=== PATIENT | female | born 1990 | race Caucasian/White ===

== ENCOUNTER 2017-09-13 05:08 | Emergency (ER) | payer SELFPAY ==
[2017-09-13] MEDS ORDERED: NA CHLORIDE 0.9% 1,000 ML ONE (05:54)
[2017-09-13] MEDS ORDERED: ONDANSETRON 4 MG/2 ML VIAL ONE (06:04)
[2017-09-13] MEDS ORDERED: KETOROLAC 30 MG/ML INJ ONE (06:04)
[2017-09-13 06:24] LABS: Absolute Monocytes 0.6 K/uL (0.1-1.3); Absolute Neutrophil 3.8 K/uL (1.8-8.0); Basophils % 0.7 % (0-1.3); Eosinophils % 4.8 % (0-4.4); Hematocrit 44.7 % (36.0-45.0); MCH 31.1 pg (27.0-35.0); MCV 92.1 fL (80-100); MPV 8.8 fL (7.6-11.3); RBC Red Blood Cell Count 4.86 M/uL (3.86-4.86)
[2017-09-13 06:38] LABS: Urine Blood 3+ (NEG); Urine Glucose NEGATIVE (NEG); Urine Protein 1+ (NEG); Urine Specific Gravity >1.030 (1.005-1.030); Urine pH 5.5 (5.0-7.0)
[2017-09-13 06:39] LABS: ALT/SGPT 30 U/L (12-78); AST/SGOT 23 U/L (15-37); Albumin 3.7 g/dL (3.4-5.0); Alkaline Phosphatase 67 U/L (45-117); Amylase Level 65 U/L (25-115); BUN Blood Urea Nitrogen 20 mg/dL (7-18); Bicarbonate 29 mmol/L (21-32); Bilirubin Direct < 0.1 mg/dL (0-0.2); Bilirubin Total 0.4 mg/dL (0.2-1.0); Glucose Level 108 mg/dL (74-106); Lipase 233 U/L (73-393); Potassium 3.8 mmol/L (3.5-5.1); Protein, Total 7.4 g/dL (6.4-8.2); Sodium Level 140 mmol/L (136-145)
[2017-09-13 06:41] LABS: Urine Bacteria >50 /HPF (<20)
[2017-09-13 06:42] LABS: Urine Culture Reflex Order REFLEXED; Urine RBC >50 /HPF (NONE SEEN)
[2017-09-13] MEDS ORDERED: CEFTRIAXONE/SWI 1gm 1 GM/10 ML SYR ONE (07:30)
--- NOTE | 2017-09-13 07:31 | EDPHYS ---
Physician Documentation [facility] Name: Santa Mcadams Age: 27 yrs Sex: Female : 1990 Arrival Date: 09/13/2017 Time: 05:09 Bed 15 Private MD: ED Physician Velasquez Perrin HPI: 09/13 06:25 This 27 yrs old Female presents to ER via Ambulatory with complaints of tw4 Possible Kidney Stone. 06:25 The patient complains of pain in the left mid back. The pain radiates to the left lower tw4 quadrant. Onset: The symptoms/episode began/occurred acutely. Modifying factors: The symptoms are alleviated by nothing. the symptoms are aggravated by nothing. Associated signs and symptoms: The patient has no apparent associated signs or symptoms. Severity of pain: At its worst the pain was moderate in the emergency department the pain is unchanged. The patient has not experienced similar symptoms in the past. 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 - Social history:: Smoking status: . - Ebola Screening: : Patient negative for fever greater than or equal to 101.5 degrees Fahrenheit, and additional compatible Ebola Virus Disease symptoms Patient denies exposure to infectious person. ROS: 06:25 Constitutional: Negative for fever, chills, and weight loss, Cardiovascular: Negative tw4 for chest pain, palpitations, and edema, Respiratory: Negative for shortness of breath, cough, wheezing, and pleuritic chest pain, Abdomen/GI: Negative for abdominal pain, nausea, vomiting, diarrhea, and constipation. 06:25 Skin: Negative for injury, rash, and discoloration, Neuro: Negative for headache, weakness, numbness, tingling, and seizure. 06:25 Back: Positive for flank pain. Exam: 06:25 Constitutional: This is a well developed, well nourished patient who is awake, alert, tw4 and in no acute distress. Chest/axilla: Normal chest wall appearance and motion. Nontender with no deformity. No lesions are appreciated. Cardiovascular: Regular rate and rhythm with a normal S1 and S2. No gallops, murmurs, or rubs. Normal PMI, no JVD. No pulse deficits. Respiratory: Lungs have equal breath sounds bilaterally, clear to auscultation and percussion. No rales, rhonchi or wheezes noted. No increased work of breathing, no retractions or nasal flaring. 06:25 Abdomen/GI: Inspection: abdomen appears normal, Bowel sounds: normal, Palpation: moderate abdominal tenderness, in the left lower quadrant. 06:25 Back: CVA tenderness, is noted on the left. Vital Signs: 05:21 BP 131 / 94; Pulse 64; Resp 18; Temp 97.6(O); Pulse Ox 97% on R/A; Weight 108.86 kg; bs1 Height 5 ft. 3 in. (160.02 cm); Pain 8/10; 06:50 BP 111 / 72; Pulse 60; Resp 16 S; Pulse Ox 97% on R/A; bs1 07:15 BP 104 / 70; Pulse 68; Resp 16; Pulse Ox 100% ; Pain 2/10; jl7 05:21 Body Mass Index 42.51 (108.86 kg, 160.02 cm) bs1 MDM: 05:11 Patient medically screened. tw09/14 01:17 Data reviewed: vital signs, nurses notes. Test interpretation: by ED physician or tw4 midlevel provider: plain radiologic studies. Counseling: I had a detailed discussion with the patient and/or guardian regarding: the historical points, exam findings, and any diagnostic results supporting the discharge/admit diagnosis. Special discussion: I discussed with the patient/guardian in detail that at this point there is no indication for admission to the hospital. It is understood, however, that if the symptoms persist or worsen the patient needs to return immediately for re-evaluation. 09/13 05:22 Order name: Amylase, Serum; Complete Time: 07:09/13 05:22 Order name: Basic Metabolic Panel; Complete Time: 07:09/13 05:22 Order name: CBC with Diff; Complete Time: 07:23 09/13 05:22 Order name: Creatinine for Radiology; Complete Time: 07:4 09/13 05:22 Order name: Hepatic Function; Complete Time: 07:23 tw4 09/13 05:22 Order name: Lipase; Complete Time: 07:23 tw4 09/13 05:22 Order name: Urine Microscopic Only; Complete Time: 07:23 tw4 09/13 05:33 Order name: Urine Dipstick--Ancillary (enter results); Complete Time: 07:23 mt 09/13 05:33 Order name: Urine --Ancillary (enter results); Complete Time: 07:23 mt 09/13 06:22 Order name: CT Stone Protocol tw4 09/13 06:43 Order name: Urine Culture EDWA 09/13 05:22 Order name: IV Saline Lock; Complete Time: 06:10 tw4 09/13 05:22 Order name: Labs collected and sent; Complete Time: 06:10 tw4 09/13 05:22 Order name: Urine Dipstick-Ancillary (obtain specimen); Complete Time: 05:51 tw4 Administered Medications: 09/13 06:06 Drug: NS 0.9% 1000 ml Route: IV; Rate: 1 bolus; Site: right antecubital; bs1 07:15 Follow up: IV Status: Completed infusion jl7 06:06 Drug: TORadol 30 mg Route: IVP; Site: right antecubital; bs1 06:35 Follow up: Response: No adverse reaction bs1 07:15 Follow up: Response: Pain is decreased jl7 06:07 Drug: Zofran 4 mg Route: IVP; Site: right antecubital; bs1 06:35 Follow up: Response: No adverse reaction bs1 07:32 Drug: Rocephin - (cefTRIAXone) 1 grams {Note: Administered over 1-2 min per protocol .} jl7 Route: IVPB; Infused Over: 30 mins; Site: left antecubital; 07:34 Follow up: Response: No adverse reaction; IV Status: Completed infusion jl7 Disposition: 09/13/17 07:30 Discharged to Home. Impression: Hydronephrosis with renal and ureteral calculous obstruction. - Condition is Stable. - Discharge Instructions: Kidney Stones, Kidney Stones, [id number], Hydronephrosis, Dietary Guidelines to Help Prevent Kidney Stones. - Prescriptions for Tylenol- Codeine #3 300-30 mg Oral Tablet - take 2 tablets by ORAL route every 6 hours As needed; 26 tablet. Zofran 4 mg Oral Tablet - take 1 tablet by ORAL route every 12 hours As needed; 14 tablet. Flomax 0.4 mg Oral Capsule, Sust. Release 24 hr - take 1 capsule by ORAL route once daily 1/2 hour following the same meal each day; 14 capsule. Cipro 500 mg Oral Tablet - take 1 tablet by ORAL route every 12 hours for 7 days; 14 tablet. - Medication Reconciliation Form, Thank You Letter, Antibiotic Education, Prescription Opioid Use form. - Follow up: Private Physician; When: 2 - 3 days; Reason: Recheck today's complaints, Continuance of care, Re-evaluation by your physician. Follow up: Abdirashid Mark MD; When: 2 - 3 days; Reason: Recheck today's complaints, Continuance of care, Re-evaluation by your physician. - Problem is new. - Symptoms have improved. Signatures: Dispatcher [employer] EDMS Velasquez Perrin MD MD cha Leal, Jahala, RN RN jl7 Twila Kendrick RN RN bs1 Wale Cartagena MD MD tw4 Corrections: (The following items were deleted from the chart) 06:27 06:25 Constitutional: This is a well developed, well nourished patient who is awake, tw4 alert, and in no acute distress. Chest/axilla: Normal chest wall appearance and motion. Nontender with no deformity. No lesions are appreciated. Cardiovascular: Regular rate and rhythm with a normal S1 and S2. No gallops, murmurs, or rubs. Normal PMI, no JVD. No pulse deficits. Respiratory: Lungs have equal breath sounds bilaterally, clear to auscultation and percussion. No rales, rhonchi or wheezes noted. No increased work of breathing, no retractions or nasal flaring. MS/ Extremity: Pulses equal, no cyanosis. Neurovascular intact. Full, normal range of motion. Neuro: Awake and alert, GCS 15, oriented to person, place, time, and situation. Cranial nerves II-XII grossly intact. Motor strength 5/5 in all extremities. Sensory grossly intact. Cerebellar exam normal. Normal gait. tw4 07:48 07:30 09/13/2017 07:30 Discharged to Home. Impression: Hydronephrosis with renal and jl7 ureteral calculous obstruction. Condition is Stable. Forms are Medication Reconciliation Form, Thank You Letter, Antibiotic Education, Prescription Opioid Use. Follow up: Private Physician; When: 2 - 3 days; Reason: Recheck today's complaints, Continuance of care, Re-evaluation by your physician. Follow up: Abdirashid Mark; When: 2 - 3 days; Reason: Recheck today's complaints, Continuance of care, Re-evaluation by your physician. Problem is new. Symptoms have improved. robe
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
--- NOTE | 2017-09-13 09:41 | RAD REPORT ---
EXAM DESCRIPTION: CT - Stone Protocol - 09/13/2017 7:19 am CLINICAL HISTORY: Abdominal pain. Lower abdominal pain. Urinary frequency COMPARISON: None. TECHNIQUE: Computed axial tomography of the abdomen pelvis was obtained without oral or IV contrast. Lack of IV and oral contrast limits evaluation of solid organs, bowel, and vessels. Coronal reformat dar images were obtained and reviewed. A preliminary report was generated by [employer] and reviewed prior to this dictation All CT scans are performed using dose optimization technique as appropriate and may include automated exposure control or mA/KV adjustment according to patient size. FINDINGS: Small nonobstructing bilateral renal calculi are present. Mild left hydronephrosis is seen . Within the proximal to mid left ureter is a 3.5 millimeter calculus Hounsfield unit 780 A small umbilical hernia is present The liver, spleen, pancreas and adrenals appear grossly normal There is no evidence of diverticulitis. The appendix appears normal IMPRESSION: A 3.5 millimeter calculus within the proximal to mid left ureter resulting in mild left hydronephrosis
== END 2017-09-13 07:48 | disposition home or self-care (01) ==
LOC: ER 05:08
DX: N13.2 Hydronephrosis with renal and ureteral calculous obstruction (principal); F31.9 Bipolar disorder, unspecified
CPT/HCPCS: 36415; 74176; 76377; 80048; 80076; 81003; 81015; 81025; 82150; 83690; 85025; 87086; 87088; 99284; J0696; J2405; J7030

== ENCOUNTER 2017-09-22 12:21 | Emergency (ER) | payer SELFPAY ==
[2017-09-22] MEDS ORDERED: HYDROCODONE/APAP 7.5/325 MG TAB ONE (14:29)
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
[2017-09-22 15:52] LABS: Urine Blood 2+ (NEG); Urine Glucose TRACE (NEG); Urine Protein 2+ (NEG); Urine Specific Gravity 1.025 (1.005-1.030)
== END 2017-09-22 15:23 | disposition home or self-care (01) ==
LOC: ER 12:21
DX: N39.0 Urinary tract infection, site not specified (principal)
CPT/HCPCS: 81003; 81025; 99283